=== PATIENT | female | born 1995 | race Caucasian/White ===

== ENCOUNTER 2019-08-26 06:55 | Emergency (ER) | payer SELFPAY ==
[2019-08-26 07:22] VITALS: BP 109/83; PULSE 91; RESP 14; TEMP 36.3; O2SAT 100; BMI 22.4
--- NOTE | 2019-08-26 07:30 | W.ED.SKABFB ---
HPI - Skin/Abscess/Foreign Bdy General: Chief complaint: Skin/Abscess/Foreign Body Stated complaint: SPIDER BITE Time Seen by Provider: 08/26/19 07:03 Source: patient Mode of arrival: ambulatory Limitations: no limitations History of Present Illness: HPI narrative: Patient is a 24-year-old female who presents to ED today with complaints of a skin lesion/abscess near her right clavicle that she noticed approximately 5 days ago. Patient tells me she did see a brown recluse in a hotel room that she stayed at recently and wonders if it could be a brown recluse bite. States area is draining at home. She has not been running any fevers or chills. MD complaint: abscess/boil Onset (ago): day(s) Tetanus up to date: yes Pain Consistency: constant Relieving factors: none Exacerbating factors: none Associated symptoms: Deny chills, fever(s), nausea or vomiting Treatments prior to arrival: none Review of Systems Const: Denies: fever, chills, body aches, fatigue or malaise Card: Denies: chest pain Resp: Denies: shortness of breath GI: Denies: nausea or vomiting Musc: Denies: neck pain, back pain or joint pain Skin/Breast: Reports: new lesion (abscess) Neuro: Denies: headache, numbness in extremities, weakness in extremities or changes in sensation [facility] ED PFSH: Social History Smoking and tobacco status: current every day smoker Physical Exam Const: COMMON NORMALS: no apparent distress, average body habitus, oriented x3, no limitations, healthy appearing, alert and well nourished Resp: COMMON NORMALS: normal respiratory effort and clear to auscultation bilaterally AUSCULTATION: clear to auscultation bilaterally Cardio: COMMON NORMALS: regular rate RATE: regular rate Neuro: COMMON NORMALS: oriented x3 SENSORIUM/ORIENTATION: Yes alert Skin: OTHER: Patient has about a 1.5 inch erythematous area overlying her right clavicle with a small 0.5 cm center with mild purulent drainage; there is no tracking deeper into abscess Course Vital Signs: Vital signs: Vital Signs Temperature 97.4 F L 08/26/19 07:22 Pulse Rate 91 08/26/19 07:22 Respiratory Rate 14 08/26/19 07:22 Blood Pressure 109/83 08/26/19 07:22 Pulse Oximetry 100 04/26/20 07:22 Discharge Plan Discharge Patient Disposition: Home, Self-Care Clinical Impression: Abscess Condition: Stable Prescriptions: New Bactrim DS 800-160 mg tablet 1 tab PO BID 7 Days Qty: 14 RF: 0 Discharge Orders: Discharge Order (Routine); Ordered 08/26/19 Ordered By: Laura Hernandez Discharge Diet: Usual diet Discharge Activity: Increase activity as tolerated Patient Instructions: Abscess (ED) Activity Restrictions/Additional Instructions: Fill and begin taking antibiotics immediately. Return to ED in 48-72 hours if abscess continues to worsen. Discharge Date/Time: 08/26/19 07:46 Coding Level of Care Code ED Traffic Clerk for Torey Perez
== END 2019-08-26 07:46 | disposition home or self-care (01) ==
PROVIDERS: Emergency Provider Physician Assistant
DX: L02.818 Cutaneous abscess of other sites (principal); F17.210 Nicotine dependence, cigarettes, uncomplicated
CPT/HCPCS: 12345; 87070; 87077; 87186; 87205; 99282